=== PATIENT | male | born 1945 | race Caucasian/White ===

== ENCOUNTER 2017-09-29 10:51 | Outpatient (REF) | payer MEDICARE, BC, SELFPAY ==
[2017-10-03 09:40] LABS: PSA, Diagnostic 3.2 ng/ml (0-6.5)
== END 2017-09-29 10:52 ==
LOC: NCHCN 10:51
PROVIDERS: PCP Internal Medicine; Visit Provider Internal Medicine
DX: N40.0 Benign prostatic hyperplasia without lower urinary tract symptoms (principal); K51.90 Ulcerative colitis, unspecified, without complications; I10 Essential (primary) hypertension
CPT/HCPCS: 84153

== ENCOUNTER 2018-10-04 13:48 | Outpatient (REF) | payer MEDICARE, BC, SELFPAY ==
[2018-10-04 20:22] LABS: C & S Indicated? C&S Done As Ordered
[2018-10-04 20:29] LABS: Abs Immature Grans 0.02 k/cumm (0.0-0.09); Absolute Basophil Count 0.04 k/cumm (0.0-0.2); Absolute Eosinophil Count 0.23 k/cumm (0.0-0.7); Absolute Lymphocyte Count 1.62 k/cumm (1.2-3.4); Absolute Monocyte Count 0.68 k/cumm (0.11-0.7); Absolute Neutrophil Count 3.72 k/cumm (1.2-6.7); Basophils % 0.6; Eosinophils % 3.6; HCT 45.2 % (40.0-50.0); HGB 15.9 g/dL (13.5-17.5); Immature Grans % 0.3; Lymphocytes % 25.7; Mean Corp. HGB Concentration 35.2 g/dL (32.0-36.0); Mean Corpuscular Volume 85.3 fL (80-95); Mean Platelet Volume 10.7 fL (8.0-11.0); Monocytes % 10.8; Platelet Count 195 x1000/uL (130-400); RBC Distribution Width 13.7 % (11.8-14.1); White Blood Cell Count 6.31 k/cumm (4.4-10.8)
[2018-10-04 20:30] LABS: Bacteria Negative HPF (Negative); Crystals Few Amorphous HPF (Negative); Epithelial Cells Negative HPF (Negative); Mucus Negative (Negative); Other Cells Negative (Negative); RBC 0-2 (0-2)
[2018-10-04 20:51] LABS: ALT 33 U/L (12-78); AST 25 U/L (15-37); Albumin 3.9 g/dL (3.4-5.0); Alkaline Phosphatase 128 U/L (46-116); Anion Gap 8.1 mmol/L (3-11); BUN 9 mg/dL (7-18); Bilirubin, Total 0.8 mg/dL (0.2-1.0); CO2 30.9 mmol/L (21.0-32.0); CREATININE 0.74 mg/dL (0.70-1.30); Calcium 8.9 mg/dL (8.5-10.1); Chloride 102 mmol/L (98-107); Glucose 202 mg/dL (70-100); LDL CHOLESTEROL 75 mg/dL (<100); Potassium 3.2 mmol/L (3.5-5.1); Sodium 141 mmol/L (136-145); Total Protein 7.5 g/dL (6.4-8.2)
[2018-10-04 21:04] LABS: C-Reactive Protein 0.11 mg/dL (0.0-0.3)
[2018-10-04 21:09] LABS: ESR 19 mm/hr (1-20)
== END 2018-10-04 14:08 ==
LOC: NCHCN 13:48
PROVIDERS: PCP Internal Medicine; Visit Provider Internal Medicine
DX: I10 Essential (primary) hypertension (principal); R51 Headache; K51.90 Ulcerative colitis, unspecified, without complications; N40.0 Benign prostatic hyperplasia without lower urinary tract symptoms; R39.9 Unspecified symptoms and signs involving the genitourinary system; K52.9 Noninfective gastroenteritis and colitis, unspecified
CPT/HCPCS: 80053; 83721; 85652; 81015; 85025; 86140; 87086

== ENCOUNTER 2021-06-24 18:24 | Outpatient (REF) | payer MEDICARE, BC, SELFPAY ==
[2021-06-26 11:08] LABS: COVID-19 RT-PCR UVMMC Result Negative (Negative)
== END 2021-06-24 18:25 | disposition home or self-care (01) ==
LOC: NCHCN 18:24
PROVIDERS: PCP Internal Medicine; Visit Provider Nurse Practitioner Family
DX: Z20.822 Contact with and (suspected) exposure to COVID-19 (principal); R05.8 Other specified cough
CPT/HCPCS: U0003; U0005

== ENCOUNTER 2021-10-23 15:14 | Outpatient (REF) | payer MEDICARE, BC, SELFPAY ==
[2021-10-23 20:43] LABS: Vitamin B12 539 pg/mL (193-986)
[2021-10-23 21:15] LABS: Hemoglobin A1C 6.2 % (<5.7)
[2021-10-27 13:36] LABS: Albumin 57.6 % (55.8-66.1); Albumin g/dL 4.4 g/dL (3.6-5.2); Total Protein 7.6 g/dL (6.3-8.2)
== END 2021-10-23 15:15 | disposition home or self-care (01) ==
LOC: NCHCN 15:14
PROVIDERS: PCP Internal Medicine; Visit Provider Internal Medicine
DX: I10 Essential (primary) hypertension; R73.09 Other abnormal glucose; G62.9 Polyneuropathy, unspecified
CPT/HCPCS: 82607; 83036; 84165; 84443